=== PATIENT | male | born 1950 | race Caucasian/White ===

== ENCOUNTER 2018-07-16 08:46 | Day surgery (SDC) | payer MEDICARE ==
[~2018-07-16 08:46] MED LIST: ACETAMINOPHEN 1,000 MG/100 ML BTL IV ONE; CEFAZOLIN 2 Gram 2 GM/50 ML BAG IVPB ONE
[2018-07-16] MEDS ORDERED: BUPIVACAINE LIPOSOME/PF 133MG/10ML VIAL IV ONE (08:47)
[2018-07-16] MEDS ORDERED: DEXAMETHASONE 4 MG/ML 1ML VIAL IVP ONE ×2 (08:47)
[2018-07-16] MEDS ORDERED: LIDOCAINE 2% MDV (20MG/ML) 20ML VIAL IV ONE (08:47)
[2018-07-16] MEDS ORDERED: MIDAZOLAM HCL 2MG/2ML VIAL IV ONE (08:47)
[2018-07-16] MEDS ORDERED: PROPOFOL 10 MG/ML VIAL IV ONE (08:47)
[2018-07-16] MEDS ORDERED: SEVOFLURANE 250 ML INH ONE (08:47)
[2018-07-16] MEDS ORDERED: MORPHINE SULFATE PF 10MG/10ML VIAL IV ONE (08:47)
[2018-07-16] MEDS ORDERED: BUPIVACAINE 0.25% MPF 30ML VIAL IVP ONE (08:47)
[2018-07-16] MEDS ORDERED: ONDANSETRON HCL IV 4 MG/2 ML VIAL IVP ONE (08:47)
[2018-07-16] MEDS ORDERED: BUPIVACAINE 0.5% W/EPI MPF 30 ML VIAL IVP ONE (08:47)
--- NOTE | 2018-07-17 10:40 | Operative Note ---
DATE OF SURGERY: 07/16/2018 PREOPERATIVE DIAGNOSIS: Tear of the rotator cuff on the right. POSTOPERATIVE DIAGNOSES: 1. Large chronic tear of the rotator cuff on the right. 2. Severe external impingement, right shoulder. 3. Advanced arthrosis right distal clavicle. 4. Diffuse synovitis, right shoulder. OPERATION: 1. Open repair of a chronically torn right rotator cuff tendon. 2. Right shoulder arthroscopy with complete synovectomy. 3. Right shoulder open acromioplasty, CA ligament resection with subacromial bursectomy. 4. Right shoulder distal clavicle resection. Staff Surgeon: Joesph Hewitt MD Anesthesia: General. Preparation: Chloraprep. Individual Considerations: None. PROCEDURE: The patient was taken to the operating room, placed supine on the operating room table. He had a successful induction with general anesthetic. His right arm and shoulder were prepped and draped in the usual fashion. Examination under anesthesia showed good passive motion and no instability. The patient had a posterior portal identified for arthroscopy. Skin was infiltrated with 0.5% Marcaine with epinephrine prior. An 18-gauge spinal needle was easily placed in the joint, and the joint was inflated with normal saline with a 60-mL syringe. A stab wound was made, and a blunt-tipped trocar for the scope was placed in the joint. The joint was inflated with normal saline. An anterior accessory portal was made just anterior to the intact long head of the biceps tendon in retrograde fashion with a Wissinger nelly, and the joint was irrigated out. He had diffuse synovitis which was debrided. The glenohumeral joint was normal. Obvious large tear of the rotator cuff which unstable ends were debrided. Subscap tendon was normal. Long head was normal. No loose bodies were seen. After debriding and irrigating out, portals were closed with peyton. The patient had an anterior approach to the subacromial space and distal clavicle. Skin was again infiltrated with 0.5% Marcaine with epinephrine prior. Sharp dissection carried down through skin and subcutaneous tissues. Small veins were coagulated with a Bovie. An anterior deltoid interval was developed. Care was taken not to split the deltoid more than about 4 cm distal to the anterior tip of the acromion to prevent injury to the axillary nerve. Once in the subacromial space, there was a large coleman of fluid consistent with a tear. The deltoid was then taken subperiosteally off the anterior aspect of the downsloping anterior acromion, over the top of the intact CA ligament, and off the anterior aspect of a highly degenerated distal clavicle. The CA ligament was resected. The distal clavicle was resected with an oscillating saw taking about 1 cm. He had a fairly impressive downsloping acromion with a spur. An anterior acromioplasty was performed taking about 1 cm, most of this being spur, and tapering towards posteromedially to include the spurs at the AC joint. The undersurface was then smoothed with a rasp. A very thick bursa was all debrided out. I now had a good look at the rotator cuff. There was a large V-shaped tear involving almost all of the supraspinatus and extending into the infraspinatus. Both ends were debrided. The area just lateral to the long head, I was able to reattach to bone but the other side, luckily I was able to do [id number] repairs and I freshened these up to good bleeding tendon. I placed a retention suture into the peak of the V and reattached it into a burred area of the bone and then remainder was repaired with multiple buried knot #1 Ethibond sutures. I put the shoulder through a full range of motion to ensure no further impingement. After irrigation, deltoid was reattached to the remaining acromion with multiple interrupted #2 Vicryl going directly through the bony acromion. The periosteal cup of the distal clavicle was closed with running #1 Vicryl. Anterior deltoid interval was closed with running #1 Vicryl. Subcu was closed with 2-0 plus Vicryl and skin was closed with peyton. The patient had about 15 mL of 0.5% Marcaine with epinephrine along with 10 mg of morphine injected into the subacromial space through a sterile 18-gauge needle. A sterile bulky compressive dressing and sling were applied. He tolerated the procedure well. Needle and sponge counts were correct. Estimated blood loss was minimal. He was taken back to recovery in good condition. There were no complications. JP
== END 2018-07-16 13:25 | disposition home or self-care (01) ==
LOC: SUR 08:46
PROVIDERS: ATTEND Orthopaedic Surgery
DX: M75.101 Unspecified rotator cuff tear or rupture of right shoulder, not specified as traumatic (principal); M75.41 Impingement syndrome of right shoulder; M65.9 Synovitis and tenosynovitis, unspecified; M19.011 Primary osteoarthritis, right shoulder; F12.90 Cannabis use, unspecified, uncomplicated
CPT/HCPCS: 23412; 29821; 23120; 23130; 01610; 64415; 76942; J2405; J0690; C9290